=== PATIENT | male | born 1960 | race Caucasian/White ===

== ENCOUNTER 2017-07-16 14:20 | Emergency (ER) | payer OTHER, SELFPAY ==
[~2017-07-16] VITALS: Ht 177.8 cm; Wt 100.0 kg
[~2017-07-16 14:20] MED LIST: LISI5TAB PO
[2017-07-16] MEDS ORDERED: FAMOTIDINE 10 MG/ML 2 ML VIAL IVP ONE (15:15)
[2017-07-16] MEDS ORDERED: SODIUM CHLORIDE 0.9% 2,000 ML IV ONE (15:15)
[2017-07-16] MEDS ORDERED: ONDANSETRON HCL 4 MG/2 ML VIAL IVP ONE (15:15)
[2017-07-16 15:33] LABS: HEMATOCRIT 45.5 % (41-53); HEMOGLOBIN 15.3 g/dL (13.5-17.5); MEAN CORPUSCULAR HEMOGLOBIN 30.5 pg (26.0-34.0); MEAN CORPUSCULAR HGB CONC 33.6 G/dL (31.0-37.0); MEAN CORPUSCULAR VOLUME 91 fL (80-100); PLATELET COUNT (AUTO) 164 K/uL (150-450); RED BLOOD CELL COUNT(AUTO) 5.02 MIL/uL (4.50-5.90); RED CELL DISTRIBUTION WIDTH 13.9 % (11.5-14.5); WHITE BLOOD COUNT (AUTO) 18.2 K/uL (4.5-11.0)
[2017-07-16 15:46] LABS: CALCIUM, TOTAL 8.3 mg/dL (8.8-10.5); CREATININE 1.61 mg/dL (0.60-1.30); POTASSIUM 3.8 mmol/L (3.5-5.1)
[2017-07-16 15:48] LABS: ALBUMIN 3.9 g/dL (3.4-5.0); BILIRUBIN,TOTAL 0.4 mg/dL (0.1-1.0); TOTAL PROTEIN, SERUM 7.1 g/dL (6.4-8.2)
[2017-07-16 16:05] LABS: BAND NEUTROPHILS % (MANUAL) 30 % (1-5); LYMPHOCYTES % (MANUAL) 11 % (22-44); TOTAL CELLS COUNTED 100
[2017-07-16 16:26] VITALS: BP 131/96
[2017-07-16 16:27] LABS: APPEARANCE,URINE CLEAR (CLEAR); GLUCOSE, URINE (UA) NEGATIVE (NEGATIVE); KETONES,URINE NEGATIVE (NEGATIVE); LEUKOCYTE ESTERASE ,URINE NEGATIVE (NEGATIVE); OCCULT BLOOD,URINE NEGATIVE (NEGATIVE); PH,URINE 6.5 (5.0-8.0); PROTEIN,URINE POS 1+ (NEGATIVE)
[2017-07-16 16:32] LABS: ADD UA MICROSCOPIC NO
== END 2017-07-16 16:39 | disposition home or self-care (01) ==
LOC: EMS 14:20
DX: T62.91XA Toxic effect of unspecified noxious substance eaten as food, accidental (unintentional), initial encounter (principal); I10 Essential (primary) hypertension; Y92.89 Other specified places as the place of occurrence of the external cause
CPT/HCPCS: 36415; 80053; 81003; 83690; 85025; 96361; 96374; 96375; 99285; J2405; J3490; J7030

== ENCOUNTER 2017-08-11 23:50 | Emergency (ER) | payer OTHER ==
[~2017-08-11] VITALS: Ht 177.8 cm; Wt 100.0 kg
[2017-08-11] MEDS ORDERED: DOXA1 PO (23:56)
[2017-08-11] MEDS ORDERED: ZOLP10TA7 PO (23:56)
[2017-08-12 00:53] LABS: BASOPHILS % (AUTO) 0.4 % (0.0-2.0); EOSINOPHILS % (AUTO) 1.2 % (1.0-6.0); HEMATOCRIT 45.8 % (41-53); HEMOGLOBIN 15.5 g/dL (13.5-17.5); LYMPHOCYTES # (AUTO) 1.5 K/uL (1.0-4.8); LYMPHOCYTES % (AUTO) 16.6 % (22.0-44.0); MEAN CORPUSCULAR HEMOGLOBIN 30.4 pg (26.0-34.0); MEAN CORPUSCULAR HGB CONC 33.8 G/dL (31.0-37.0); MEAN CORPUSCULAR VOLUME 90 fL (80-100); MONOCYTES # (AUTO) 0.5 K/uL (0.1-1.0); NEUTROPHILS # (AUTO) 7.1 K/uL (1.8-7.7); NEUTROPHILS % (AUTO) 76.8 % (40.0-70.0); PLATELET COUNT (AUTO) 185 K/uL (150-450); RED BLOOD CELL COUNT(AUTO) 5.09 MIL/uL (4.50-5.90); RED CELL DISTRIBUTION WIDTH 13.6 % (11.5-14.5); WHITE BLOOD COUNT (AUTO) 9.2 K/uL (4.5-11.0)
[2017-08-12 01:06] LABS: APPEARANCE,URINE TURBID (CLEAR); GLUCOSE, URINE (UA) NEGATIVE (NEGATIVE); KETONES,URINE NEGATIVE (NEGATIVE); LEUKOCYTE ESTERASE ,URINE NEGATIVE (NEGATIVE); OCCULT BLOOD,URINE NEGATIVE (NEGATIVE); PROTEIN,URINE NEGATIVE (NEGATIVE)
[2017-08-12 01:07] LABS: ADD UA MICROSCOPIC NO
[2017-08-12 01:08] LABS: CALCIUM, TOTAL 9.6 mg/dL (8.8-10.5); CREATININE 1.45 mg/dL (0.60-1.30); POTASSIUM 4.3 mmol/L (3.5-5.1)
[2017-08-12 01:21] LABS: ALBUMIN 4.3 g/dL (3.4-5.0); BILIRUBIN,TOTAL 0.6 mg/dL (0.1-1.0); TOTAL PROTEIN, SERUM 8.1 g/dL (6.4-8.2)
[2017-08-12 02:42] VITALS: BP 180/115
== END 2017-08-12 03:15 | disposition home or self-care (01) ==
LOC: EMS 23:52
DX: K85.90 Acute pancreatitis without necrosis or infection, unspecified (principal); I10 Essential (primary) hypertension
CPT/HCPCS: 74176; 99285

== ENCOUNTER 2019-01-25 23:36 | Emergency (ER) | payer OTHER ==
[~2019-01-25] VITALS: Ht 177.8 cm; Wt 104.5 kg
[~2019-01-25 23:36] MED LIST changes: +DOXA1 PO; +ZOLP10TA7 PO
[2019-01-25] MEDS ORDERED: AMLO-511 PO (23:49)
[2019-01-26 00:19] LABS: BASOPHILS % (AUTO) 0.6 % (0.0-2.0); EOSINOPHILS % (AUTO) 4.1 % (1.0-6.0); HEMATOCRIT 47.8 % (41-53); HEMOGLOBIN 15.9 g/dL (13.5-17.5); LYMPHOCYTES # (AUTO) 2.7 K/uL (1.0-4.8); LYMPHOCYTES % (AUTO) 39.4 % (22.0-44.0); MEAN CORPUSCULAR HEMOGLOBIN 29.9 pg (26.0-34.0); MEAN CORPUSCULAR HGB CONC 33.2 G/dL (31.0-37.0); MEAN CORPUSCULAR VOLUME 90 fL (80-100); MONOCYTES # (AUTO) 0.5 K/uL (0.1-1.0); MONOCYTES % (AUTO) 7.8 % (2.0-9.0); NEUTROPHILS # (AUTO) 3.3 K/uL (1.8-7.7); NEUTROPHILS % (AUTO) 48.1 % (40.0-70.0); PLATELET COUNT (AUTO) 200 K/uL (150-450); RED BLOOD CELL COUNT(AUTO) 5.31 MIL/uL (4.50-5.90)
[2019-01-26 00:30] LABS: PROTHROMBIN TIME 10.4 SEC (9.4-11.6)
[2019-01-26] MEDS ORDERED: KETOROLAC TROMETHAMINE 60 MG/2 ML VIAL IM ONE (00:30)
[2019-01-26 00:52] LABS: ALBUMIN 3.9 g/dL (3.4-5.0); BILIRUBIN,TOTAL 0.4 mg/dL (0.1-1.0); CREATININE 1.43 mg/dL (0.60-1.30); POTASSIUM 4.5 mmol/L (3.5-5.1); TOTAL PROTEIN, SERUM 7.8 g/dL (6.4-8.2)
[2019-01-26 00:59] LABS: APPEARANCE,URINE CLEAR (CLEAR); BILIRUBIN,URINE NEGATIVE (NEGATIVE); GLUCOSE, URINE (UA) NEGATIVE (NEGATIVE); KETONES,URINE NEGATIVE (NEGATIVE); LEUKOCYTE ESTERASE ,URINE NEGATIVE (NEGATIVE); NITRATE,URINE NEGATIVE (NEGATIVE); OCCULT BLOOD,URINE NEGATIVE (NEGATIVE); PROTEIN,URINE NEGATIVE (NEGATIVE); UROBILINOGEN,URINE 0.2 mg/dL (<=1.0)
[2019-01-26] MEDS ORDERED: CloNIDine HCL 0.2 MG TABLET PO ONE (01:15)
[2019-01-26] MEDS ORDERED: AmLODIPine BESYLATE 5 MG TABLET PO ONE (02:00)
[2019-01-26 02:15] VITALS: BP 144/96
== END 2019-01-26 02:45 | disposition home or self-care (01) ==
LOC: EMS 23:38
DX: M25.512 Pain in left shoulder (principal); I10 Essential (primary) hypertension; Z79.899 Other long term (current) drug therapy; Z88.0 Allergy status to penicillin
CPT/HCPCS: 36415; 71045; 80053; 81003; 82550; 83880; 84484; 85025; 85610; 85730; 93005; 96372; 99285; J1885

== ENCOUNTER 2019-10-05 05:20 | Emergency (ER) | payer OTHER ==
[~2019-10-05] VITALS: Ht 177.8 cm; Wt 104.5 kg
[~2019-10-05 05:20] MED LIST changes: +ALBU8HFA IH; +AMLO10TA7 PO; -DOXA1 PO; +DOXA4TAB3 PO; +LISI40TA4 PO; -LISI5TAB PO
[2019-10-05 05:28] VITALS: BP 135/93
== END 2019-10-05 06:45 | disposition left against medical advice (07) ==
LOC: EMS 05:20
DX: R10.9 Unspecified abdominal pain (principal); Z53.21 Procedure and treatment not carried out due to patient leaving prior to being seen by health care provider

== ENCOUNTER 2022-04-11 16:46 | Emergency (ER) | payer OTHER ==
[~2022-04-11] VITALS: Ht 177.8 cm; Wt 109.1 kg
[~2022-04-11 16:46] MED LIST changes: +AMLO-258 PO; -AMLO10TA7 PO; -LISI40TA4 PO; +LISI40TA9 PO; -ZOLP10TA7 PO; +ZOLP10TA8 PO
[2022-04-11] MEDS ORDERED: LABETALOL HCL 5 MG/ML 20 ML VIAL IVP ONE (17:45)
[2022-04-11] MEDS ORDERED: AmLODIPine BESYLATE 5 MG TABLET PO ONE (17:45)
[2022-04-11] MEDS ORDERED: CHLO25TA3 PO (17:46)
[2022-04-11] MEDS ORDERED: MONT-40 PO (17:46)
[2022-04-11] MEDS ORDERED: TADA20TA43 PO (17:46)
[2022-04-11] MEDS ORDERED: FLUT16H NASAL (17:46)
[2022-04-11] MEDS ORDERED: LORA10TA7 PO (17:46)
[2022-04-11 18:26] LABS: BASOPHILS % (AUTO) 0.5 % (0.0-2.0); EOSINOPHILS % (AUTO) 1.5 % (1.0-6.0); HEMATOCRIT 46.3 % (41-53); HEMOGLOBIN 15.5 g/dL (13.5-17.5); LYMPHOCYTES # (AUTO) 2.5 K/uL (1.0-4.8); LYMPHOCYTES % (AUTO) 34.8 % (22.0-44.0); MEAN CORPUSCULAR HEMOGLOBIN 29.3 pg (26.0-34.0); MEAN CORPUSCULAR HGB CONC 33.5 G/dL (31.0-37.0); MEAN CORPUSCULAR VOLUME 88 fL (80-100); MONOCYTES # (AUTO) 0.7 K/uL (0.1-1.0); MONOCYTES % (AUTO) 9.3 % (2.0-9.0); NEUTROPHILS # (AUTO) 3.8 K/uL (1.8-7.7); NEUTROPHILS % (AUTO) 53.9 % (40.0-70.0); PLATELET COUNT (AUTO) 189 K/uL (150-450); RED BLOOD CELL COUNT(AUTO) 5.28 MIL/uL (4.50-5.90); RED CELL DISTRIBUTION WIDTH 14.4 % (11.5-14.5)
[2022-04-11 18:42] LABS: ANION GAP 1 mmol/L (8-16); CALCIUM, TOTAL 8.2 mg/dL (8.8-10.5); CARBON DIOXIDE 35 mmol/L (22-29); CHLORIDE 103 mmol/L (98-107); CREATININE 1.36 mg/dL (0.60-1.30); GLUCOSE,RANDOM 107 mg/dL (70-110); POTASSIUM 3.9 mmol/L (3.5-5.1); SODIUM SERUM 139 mmol/L (136-145); UREA NITROGEN, BLOOD 17 mg/dL (7-18)
[2022-04-11 18:43] LABS: GLOMERULAR FILTR. RATE CALC 53 mL/min (>60)
[2022-04-11 18:48] LABS: ALANINE AMINOTRANSFERASE 95 U/L (12-78); ALBUMIN 3.8 g/dL (3.4-5.0); ALKALINE PHOSPHATASE 89 U/L (46-116); ASPARTATE AMINOTRANSFERASE 38 U/L (15-37); BILIRUBIN,TOTAL 0.3 mg/dL (0.1-1.0); TOTAL PROTEIN, SERUM 7.7 g/dL (6.4-8.2)
[2022-04-11 20:27] VITALS: BP 167/108
[2022-04-11] MEDS ORDERED: AMLO-258 PO (20:36)
== END 2022-04-11 20:49 | disposition home or self-care (01) ==
LOC: EMS 16:46
DX: I10 Essential (primary) hypertension (principal); Z87.09 Personal history of other diseases of the respiratory system; Z87.39 Personal history of other diseases of the musculoskeletal system and connective tissue; Z98.890 Other specified postprocedural states; Z88.0 Allergy status to penicillin
CPT/HCPCS: 99285; 96374; 71045; 80053; 84484; 85025; 36415; 93005; G0480; J3490

== ENCOUNTER 2022-05-14 00:24 | Emergency (ER) | payer OTHER ==
[~2022-05-14] VITALS: Ht 177.8 cm; Wt 117.2 kg
[~2022-05-14 00:24] MED LIST changes: +CHLO25TA3 PO; +FLUT16H NASAL; +LORA10TA7 PO; +MONT-40 PO; +TADA20TA43 PO
[2022-05-14 00:25] VITALS: BP 155/104
[2022-05-14 00:50] LABS: BASOPHILS % (AUTO) 0.5 % (0.0-2.0); EOSINOPHILS % (AUTO) 5.1 % (1.0-6.0); HEMATOCRIT 42.2 % (41-53); HEMOGLOBIN 13.7 g/dL (13.5-17.5); LYMPHOCYTES # (AUTO) 2.2 K/uL (1.0-4.8); LYMPHOCYTES % (AUTO) 34.9 % (22.0-44.0); MEAN CORPUSCULAR HEMOGLOBIN 29.1 pg (26.0-34.0); MEAN CORPUSCULAR HGB CONC 32.5 G/dL (31.0-37.0); MEAN CORPUSCULAR VOLUME 90 fL (80-100); MONOCYTES # (AUTO) 0.5 K/uL (0.1-1.0); MONOCYTES % (AUTO) 8.1 % (2.0-9.0); NEUTROPHILS # (AUTO) 3.2 K/uL (1.8-7.7); NEUTROPHILS % (AUTO) 51.4 % (40.0-70.0); PLATELET COUNT (AUTO) 156 K/uL (150-450); RED BLOOD CELL COUNT(AUTO) 4.71 MIL/uL (4.50-5.90); RED CELL DISTRIBUTION WIDTH 14.5 % (11.5-14.5)
[2022-05-14 01:02] LABS: CALCIUM, TOTAL 8.5 mg/dL (8.8-10.5); CREATININE 1.44 mg/dL (0.60-1.30); POTASSIUM 3.4 mmol/L (3.5-5.1)
[2022-05-14 01:08] LABS: ALBUMIN 3.6 g/dL (3.4-5.0); BILIRUBIN,TOTAL 0.4 mg/dL (0.1-1.0); TOTAL PROTEIN, SERUM 6.9 g/dL (6.4-8.2)
== END 2022-05-14 02:00 | disposition left against medical advice (07) ==
LOC: EMS 00:24
DX: Z53.21 Procedure and treatment not carried out due to patient leaving prior to being seen by health care provider (principal)
CPT/HCPCS: 71045; 80053; 84484; 85025; 93005; 36415-L1; 36415-TC

== ENCOUNTER 2023-01-07 06:03 | Emergency (ER) | payer OTHER ==
[~2023-01-07] VITALS: Ht 175.3 cm; Wt 110.0 kg
[~2023-01-07 06:03] MED LIST changes: +ALBU18HF12 IH; -ALBU8HFA IH; -FLUT16H NASAL; +FLUT16SP NASAL
[2023-01-07 06:07] VITALS: BP 153/95
[2023-01-07] MEDS ORDERED: LIDOCAINE 1% 10 ML VIAL SQ ONE (07:15)
[2023-01-07] MEDS ORDERED: POVIDONE-IODINE 10% 15 ML SOLUTION UD ONE (07:20)
[2023-01-07] MEDS ORDERED: POVIDONE-IODINE 10% 15 ML SOLUTION UD TP ONE (07:30)
[2023-01-07] MEDS ORDERED: SULFAMETHOX/TRIMETH DS 800-160 MG/TABLET PO ONE (07:45)
[2023-01-07] MEDS ORDERED: DOXYCYCLINE HYCLATE 100 MG TABLET PO ONE (07:45)
[2023-01-07] MEDS ORDERED: DOXY-354 PO (07:45)
[2023-01-07] MEDS ORDERED: SULF-261 PO (07:45)
[2023-01-07] MEDS ORDERED: IBUP-1492 PO (07:46)
== END 2023-01-07 08:05 | disposition home or self-care (01) ==
LOC: EMS 06:04
DX: L02.31 Cutaneous abscess of buttock (principal); I10 Essential (primary) hypertension; Z98.890 Other specified postprocedural states; Z88.0 Allergy status to penicillin
CPT/HCPCS: 99283; 10060; J3490

== ENCOUNTER 2023-01-09 06:12 | Emergency (ER) | payer OTHER ==
[~2023-01-09] VITALS: Ht 177.8 cm; Wt 109.0 kg
[~2023-01-09 06:12] MED LIST changes: +DOXY-354 PO; +IBUP-1492 PO; +SULF-261 PO
[2023-01-09 06:50] VITALS: BP 137/89
== END 2023-01-09 07:15 | disposition home or self-care (01) ==
LOC: EMS 06:13
DX: L08.9 Local infection of the skin and subcutaneous tissue, unspecified (principal); L02.31 Cutaneous abscess of buttock; I10 Essential (primary) hypertension; Z88.0 Allergy status to penicillin; Z79.899 Other long term (current) drug therapy
CPT/HCPCS: 99281; Z7502

== ENCOUNTER 2023-04-07 01:10 | Emergency (ER) | payer OTHER ==
[~2023-04-07] VITALS: Ht 175.3 cm; Wt 108.0 kg
[~2023-04-07 01:10] MED LIST changes: +ZOLP-162 PO; -ZOLP10TA8 PO
[2023-04-07 01:14] VITALS: BP 116/78; PULSE 88; RESP 18; TEMP 98.2
[2023-04-07] MEDS ORDERED: DOXY-354 PO (02:36)
[2023-04-07] MEDS ORDERED: DOXYCYCLINE HYCLATE 100 MG TABLET PO ONE (02:45)
== END 2023-04-07 02:42 | disposition home or self-care (01) ==
LOC: EMS 01:11
DX: N49.2 Inflammatory disorders of scrotum (principal); J45.909 Unspecified asthma, uncomplicated; I10 Essential (primary) hypertension; M75.101 Unspecified rotator cuff tear or rupture of right shoulder, not specified as traumatic; Z88.0 Allergy status to penicillin
CPT/HCPCS: 99283

== ENCOUNTER 2023-10-25 23:59 | Emergency (ER) | payer OTHER | END 2023-10-26 00:31 | disposition home or self-care (01) | LOC: EMS 10-26 | DX: R07.9 Chest pain, unspecified (principal); Z53.21 Procedure and treatment not carried out due to patient leaving prior to being seen by health care provider ==

== ENCOUNTER 2025-03-08 13:13 | Inpatient (IN) | payer OTHER ==
[~2025-03-08] VITALS: Ht 180.3 cm; Wt 114.8 kg
[~2025-03-08 13:13] MED LIST changes: -AMLO-258 PO; +AMLO5TAB66 PO; -DOXY-354 PO; -IBUP-1492 PO; +LISI-1024 PO; -LISI40TA9 PO; +PRED-554 PO; -SULF-261 PO
[2025-03-08] MEDS: ATORVASTATIN CALCIUM 40 MG TABLET PO SCH (13:30)
[2025-03-08] MEDS ORDERED: ASPIRIN 325 MG TABLET PO ONE (13:30)
[2025-03-08] MEDS ORDERED: ONDANSETRON HCL 4 MG/2 ML VIAL IVP PRN (13:45)
[2025-03-08 14:02] LABS: PLATELET COUNT (AUTO) 171 K/uL (150-450); RED BLOOD CELL COUNT(AUTO) 4.88 MIL/uL (4.50-5.90); RED CELL DISTRIBUTION WIDTH 13.9 % (11.5-14.5); WHITE BLOOD COUNT (AUTO) 5.3 K/uL (4.5-11.0)
[2025-03-08 14:17] LABS: CALCIUM, TOTAL 8.8 mg/dL (8.8-10.5); CREATININE 1.04 mg/dL (0.60-1.30); GLOMERULAR FILTR. RATE CALC > 60 mL/min (>60); GLUCOSE,RANDOM 112 mg/dL (70-110); SODIUM SERUM 145 mmol/L (136-145); UREA NITROGEN, BLOOD 15 mg/dL (7-18)
[2025-03-08 14:21] LABS: ASPARTATE AMINOTRANSFERASE 84 U/L (15-37); CHOL/HDL RATIO 3.2 (4.2-7.3); LDL CHOL (CALC.) 64 mg/dL (0-130); TOTAL PROTEIN, SERUM 7.2 g/dL (6.4-8.2)
[2025-03-08 14:23] LABS: TROPONIN I-HIGH SENSITIVITY 20 ng/L (<76)
[2025-03-08] MEDS ORDERED: HEPARIN SODIUM,PORCINE 5,000 UNITS/ML VIAL SQ SCH (16:00)
[2025-03-08 16:47] LABS: APPEARANCE,URINE CLEAR (CLEAR); GLUCOSE, URINE (UA) NEGATIVE (NEGATIVE); LEUKOCYTE ESTERASE ,URINE NEGATIVE (NEGATIVE); NITRATE,URINE NEGATIVE (NEGATIVE); OCCULT BLOOD,URINE NEGATIVE (NEGATIVE); PH,URINE DRUG SCREEN 6.5 (5.0-8.0); SPECIFIC GRAVITIY, URINE 1.040 (1.003-1.030)
[2025-03-08 16:51] LABS: ALCOHOL, URINE DRUG SCREEN NEGATIVE (NEGATIVE); AMPHET/METH SCREEN,URINE POSITIVE (NEGATIVE); BARBITURATE SCREEN, URINE NEGATIVE (NEGATIVE); CANNABINOID SCREEN,URINE POSITIVE (NEGATIVE); COCAINE SCREEN,URINE NEGATIVE (NEGATIVE); METHADONE SCREEN, URINE NEGATIVE (NEGATIVE)
[2025-03-08 19:47] LABS: TROPONIN I-HIGH SENSITIVITY 22 ng/L (<76)
[2025-03-08 22:00] VITALS: BP 134/99; PULSE 80; RESP 16; TEMP 98.8; O2SAT 96
[2025-03-08] MEDS: DOCUSATE SODIUM 100 MG CAPSULE PO SCH (22:35)
[2025-03-08] MEDS: LOSARTAN POTASSIUM 25 MG TABLET PO SCH (23:15)
[2025-03-09] VITALS (9 sets, daily range): BP systolic 125–154; BP diastolic 72–105; PULSE 70–96; RESP 14–27; TEMP 98.2–98.8; O2SAT 91–96
[2025-03-09] MEDS: ALBUTEROL SULFATE 2.5 MG/0.5 ML NEB SOLUTION NEB PRN (02:07)
[2025-03-09 06:31] LABS: PLATELET COUNT (AUTO) 166 K/uL (150-450); RED BLOOD CELL COUNT(AUTO) 5.08 MIL/uL (4.50-5.90); RED CELL DISTRIBUTION WIDTH 13.7 % (11.5-14.5); WHITE BLOOD COUNT (AUTO) 6.0 K/uL (4.5-11.0)
[2025-03-09 07:00] LABS: CALCIUM, TOTAL 8.6 mg/dL (8.8-10.5); CREATININE 0.86 mg/dL (0.60-1.30); GLOMERULAR FILTR. RATE CALC > 60 mL/min (>60); GLUCOSE,RANDOM 107 mg/dL (70-110); SODIUM SERUM 143 mmol/L (136-145); UREA NITROGEN, BLOOD 9 mg/dL (7-18)
[2025-03-09] MEDS ORDERED: ASPIRIN 81 MG CHEWABLE TABLET PO SCH (09:00)
[2025-03-09] MEDS ORDERED: FAMOTIDINE 20 MG TABLET PO SCH (09:00)
[2025-03-09] MEDS: PANTOPRAZOLE SODIUM 40 MG/VIAL IVP SCH (10:07)
[2025-03-10] VITALS (8 sets, daily range): BP systolic 123–155; BP diastolic 77–101; PULSE 70–91; RESP 17–20; TEMP 98.2–98.4; O2SAT 93–96
[2025-03-10] MEDS ORDERED: 0.9% SODIUM CHLORIDE 5 ML NEB SOLUTION NEB ONE (20:55)
[2025-03-11] VITALS: BP 138/85; PULSE 85; RESP 18; TEMP 97.5; O2SAT 92
[2025-03-11] MEDS: ACETAMINOPHEN 325 MG TABLET PO PRN (00:39)
[2025-03-11] MEDS ORDERED: 0.9% SODIUM CHLORIDE 5 ML NEB SOLUTION NEB ONE (02:52)
[2025-03-11 02:53] VITALS: PULSE 87; RESP 20; O2SAT 89
[2025-03-11 03:08] VITALS: PULSE 80; RESP 20; O2SAT 96
[2025-03-11 04:00] VITALS: BP 127/82; PULSE 87; RESP 18; TEMP 98.2; O2SAT 94
[2025-03-11 06:45] LABS: PLATELET COUNT (AUTO) 192 K/uL (150-450); RED BLOOD CELL COUNT(AUTO) 5.34 MIL/uL (4.50-5.90); RED CELL DISTRIBUTION WIDTH 13.8 % (11.5-14.5); WHITE BLOOD COUNT (AUTO) 7.0 K/uL (4.5-11.0)
[2025-03-11 07:04] LABS: CALCIUM, TOTAL 9.0 mg/dL (8.8-10.5); CREATININE 1.09 mg/dL (0.60-1.30); GLOMERULAR FILTR. RATE CALC > 60 mL/min (>60); GLUCOSE,RANDOM 104 mg/dL (70-110); SODIUM SERUM 144 mmol/L (136-145); UREA NITROGEN, BLOOD 13 mg/dL (7-18)
[2025-03-11 08:38] VITALS: BP 132/98; PULSE 73; RESP 19; TEMP 97.5; O2SAT 97
[2025-03-11] MEDS ORDERED: ATOR20TA PO (09:58)
[2025-03-11] MEDS ORDERED: DOCU-385 PO (10:14)
[2025-03-11 12:06] VITALS: BP 136/93; PULSE 84; RESP 18; TEMP 98.2; O2SAT 96
== END 2025-03-11 13:15 | disposition home or self-care (01) | DRG 44 ==
LOC: EMS 13:13 → EDH 13:31 → ICU 22:00 → 5S 03-09 17:55
PROVIDERS: ADMIT Internal Medicine; ATTEND Internal Medicine
DX: I61.8 Other nontraumatic intracerebral hemorrhage (principal); E66.9 Obesity, unspecified; F15.10 Other stimulant abuse, uncomplicated; I10 Essential (primary) hypertension; F12.90 Cannabis use, unspecified, uncomplicated; J45.909 Unspecified asthma, uncomplicated; Z68.35 Body mass index [BMI] 35.0-35.9, adult; Z88.0 Allergy status to penicillin; Z79.899 Other long term (current) drug therapy; Z82.49 Family history of ischemic heart disease and other diseases of the circulatory system
CPT/HCPCS: 70450; 70496; 70498; 71045; 80048; 80053; 80061; 80307; 81001; 82948; 83036; 84484; 85025; 85610; 85730; 86850; 86900; 86901; 87081; 92610; 93005; 93306; 94640; 97116; 97163; 97167; 97530; 97535; 99291; J0360; J2470; J3490; J7050; 36415-L1; 36415-TC; J7613

== ENCOUNTER 2025-03-11 20:09 | Emergency (ER) | payer OTHER ==
[~2025-03-11 20:09] MED LIST changes: +ATOR20TA PO; +DOCU-385 PO
== END 2025-03-11 21:28 | disposition left against medical advice (07) ==
LOC: EMS 20:09
DX: I10 Essential (primary) hypertension (principal); Z53.21 Procedure and treatment not carried out due to patient leaving prior to being seen by health care provider

== ENCOUNTER 2025-03-18 02:19 | Emergency (ER) | payer OTHER ==
[~2025-03-18] VITALS: Ht 177.8 cm; Wt 109.1 kg
[~2025-03-18 02:19] MED LIST changes: -CHLO25TA3 PO; -DOXA4TAB3 PO; -FLUT16SP NASAL; -LORA10TA7 PO; -MONT-40 PO; -PRED-554 PO; -TADA20TA43 PO; -ZOLP-162 PO
[2025-03-18 02:45] VITALS: TEMP 97.705256
[2025-03-18 03:28] LABS: PLATELET COUNT (AUTO) 171 K/uL (150-450); RED BLOOD CELL COUNT(AUTO) 4.66 MIL/uL (4.50-5.90); RED CELL DISTRIBUTION WIDTH 13.5 % (11.5-14.5); WHITE BLOOD COUNT (AUTO) 6.6 K/uL (4.5-11.0)
[2025-03-18 03:39] LABS: CALCIUM, TOTAL 8.2 mg/dL (8.8-10.5); CREATININE 0.97 mg/dL (0.60-1.30); GLOMERULAR FILTR. RATE CALC > 60 mL/min (>60); GLUCOSE,RANDOM 132 mg/dL (70-110); SODIUM SERUM 142 mmol/L (136-145); UREA NITROGEN, BLOOD 18 mg/dL (7-18)
[2025-03-18 03:47] LABS: TROPONIN I-HIGH SENSITIVITY 24 ng/L (<76)
[2025-03-18 04:28] VITALS: BP 150/82; PULSE 74; RESP 18; O2SAT 94
== END 2025-03-18 06:09 | disposition left against medical advice (07) ==
LOC: EMS 02:35
DX: F41.9 Anxiety disorder, unspecified (principal); R20.2 Paresthesia of skin; R20.0 Anesthesia of skin; R06.02 Shortness of breath; I10 Essential (primary) hypertension; J45.909 Unspecified asthma, uncomplicated; Z88.0 Allergy status to penicillin; Z86.73 Personal history of transient ischemic attack (TIA), and cerebral infarction without residual deficits; Z79.899 Other long term (current) drug therapy
CPT/HCPCS: 70450; 80048; 83880; 84484; 85025; 85610; 85730; 93005; 99284

== ENCOUNTER 2025-03-21 01:56 | Emergency (ER) | payer OTHER ==
[~2025-03-21] VITALS: Ht 177.8 cm; Wt 115.0 kg
[2025-03-21 02:06] VITALS: TEMP 97.9
[2025-03-21 02:43] VITALS: BP 157/100; PULSE 90; RESP 23; O2SAT 99
[2025-03-22] MEDS ORDERED: ZOLP-162 PO (11:36)
[2025-03-22] MEDS ORDERED: TADA20TA43 PO (11:36)
[2025-03-22] MEDS ORDERED: TRIA15CR49 TP (11:36)
[2025-03-22] MEDS ORDERED: HYDR25TA2 PO (13:10)
== END 2025-03-21 04:07 | disposition home or self-care (01) ==
LOC: EMS 02:06
DX: I10 Essential (primary) hypertension (principal); J45.909 Unspecified asthma, uncomplicated; F15.90 Other stimulant use, unspecified, uncomplicated; Z86.73 Personal history of transient ischemic attack (TIA), and cerebral infarction without residual deficits; Z88.0 Allergy status to penicillin; Z79.899 Other long term (current) drug therapy; Z98.890 Other specified postprocedural states
CPT/HCPCS: 99282; Z7502

== ENCOUNTER 2025-03-22 10:17 | Emergency (ER) | payer OTHER ==
[~2025-03-22] VITALS: Ht 177.8 cm; Wt 109.1 kg
[2025-03-22 10:19] VITALS: TEMP 98.2
[2025-03-22] MEDS ORDERED: TRIA15CR49 TP (11:36)
[2025-03-22] MEDS ORDERED: ZOLP-162 PO (11:36)
[2025-03-22] MEDS ORDERED: TADA20TA43 PO (11:36)
[2025-03-22 11:58] LABS: PLATELET COUNT (AUTO) 170 K/uL (150-450); RED BLOOD CELL COUNT(AUTO) 4.83 MIL/uL (4.50-5.90); RED CELL DISTRIBUTION WIDTH 13.9 % (11.5-14.5); WHITE BLOOD COUNT (AUTO) 6.9 K/uL (4.5-11.0)
[2025-03-22 12:14] LABS: SODIUM SERUM 142 mmol/L (136-145)
[2025-03-22 12:15] LABS: CALCIUM, TOTAL 8.3 mg/dL (8.8-10.5); CREATININE 0.99 mg/dL (0.60-1.30); GLOMERULAR FILTR. RATE CALC > 60 mL/min (>60); GLUCOSE,RANDOM 146 mg/dL (70-110); TROPONIN I-HIGH SENSITIVITY 25 ng/L (<76)
[2025-03-22 12:24] LABS: UREA NITROGEN, BLOOD 20 mg/dL (7-18)
[2025-03-22] MEDS ORDERED: HYDR25TA2 PO (13:10)
[2025-03-22 13:20] VITALS: BP 140/94; PULSE 80; RESP 18; O2SAT 96
== END 2025-03-22 13:26 | disposition home or self-care (01) ==
LOC: EMS 10:18
DX: I10 Essential (primary) hypertension (principal); J45.909 Unspecified asthma, uncomplicated; F15.90 Other stimulant use, unspecified, uncomplicated; Z86.73 Personal history of transient ischemic attack (TIA), and cerebral infarction without residual deficits; Z98.890 Other specified postprocedural states; Z88.0 Allergy status to penicillin; Z79.899 Other long term (current) drug therapy
CPT/HCPCS: 80048; 84484; 85025; 93005; 99284